=== PATIENT | female | born 1965 | race African-American/Black ===

== ENCOUNTER 2024-08-13 12:49 | Emergency (ER) | payer MEDICAID ==
[~2024-08-13] VITALS: Ht 170.2 cm; Wt 82.0 kg
[2024-08-13 12:59] VITALS: BP 142/74; PULSE 84; RESP 20; TEMP 36.9; O2SAT 99
[2024-08-13 15:08] LABS: HEMATOCRIT 36.9 % (36.0-48.0); MEAN CORPUSCULAR HEMOGLOBIN 32.1 pg (28.0-32.0); MEAN CORPUSCULAR HGB CONC 32.4 g/dL (31.0-37.0); PLATELET 250 x1000/uL (130-400); RED BLOOD CELL COUNT 3.73 mill/uL (4.2-5.4); RED CELL DISTRIBUTION WIDTH 17.5 % (11.6-14.6); WHITE BLOOD COUNT 4.5 x1000/uL (4.5-11.0)
[2024-08-13 15:15] LABS: CHLORIDE 101 mEq/L (98-107)
[2024-08-13 15:16] LABS: POTASSIUM 4.4 mEq/L (3.5-5.1); SODIUM 135 mEq/L (136-145)
[2024-08-13 15:17] LABS: CALCIUM 9.3 mg/dL (8.7-10.4); CARBON DIOXIDE 22 mEq/L (21-32)
[2024-08-13 15:22] LABS: CREATININE 1.1 mg/dL (0.6-1.0); GLUCOSE 275 mg/dL (70-105); UREA NITROGEN BLOOD 17 mg/dL (9-23)
== END 2024-08-14 00:13 | disposition admitted as inpatient to this hospital (09) ==
LOC: ER 13:22 → EDBEDREQ 19:22 → EDBEDREQSVC 19:22 → ER 08-14 00:13
DX: E11.649 Type 2 diabetes mellitus with hypoglycemia without coma (principal); I10 Essential (primary) hypertension; Z79.4 Long term (current) use of insulin; Z88.2 Allergy status to sulfonamides; Z98.890 Other specified postprocedural states
CPT/HCPCS: 36415; 80048; 80320; 82962; 85027; 99283; G0480